=== PATIENT | female | born 1960 | race Caucasian/White ===

== ENCOUNTER 2016-11-30 17:08 | Emergency (ER) | payer BC, OTHER ==
[~2016-11-30] VITALS: Ht 160 cm; Wt 88.3 kg
[2016-11-30 17:14] VITALS: BP 162/74
[2016-11-30] MEDS ORDERED: diphenhydrAMINE 50 MG/ML INJ (BENADRYL) IV ONE (17:30)
[2016-11-30] MEDS ORDERED: HYDROmorphone 2 MG/ML (DILAUDID) 1 ML SYRINGE IM ONE (17:30)
[2016-11-30] MEDS ORDERED: PROMETHAZINE 25 MG/ML (PHENERGAN) 1 ML VIAL IM ONE (17:35)
== END 2016-11-30 18:15 | disposition home or self-care (01) ==
LOC: ED 17:09
DX: G43.111 Migraine with aura, intractable, with status migrainosus (principal)
CPT/HCPCS: 96372; 96374; 99282; J1170; J1200; J2550

== ENCOUNTER 2016-12-17 19:08 | Emergency (ER) | payer BC, OTHER ==
[~2016-12-17] VITALS: Ht 160 cm; Wt 88.6 kg
[~2016-12-17 19:08] MED LIST: AMIT25TA9 PO; BTR10SP2; CHOL10002 PO; CINN500C14 PO; DULO60CA58 PO; ELUX75TA PO; ESZO3TAB11 PO; HYDR-3754 PO; HYDR-3811 PO; MODA100T10 PO; MTC5T PO; ONDA4TABED PO; OSPE60TA2 PO; PERCOCET PO; PRM25T PO; PROM25TA5 PO; [UNRECOGNIZED DRUG - OTHER]
--- OUTSIDE RECORDS SUMMARY | 2016-12-17 19:15 | XMS REPORT | Continuity of Care Document ---
Author Author [facility] Organization [facility] Address Unknown Phone Unavailable Care Team Providers Care Rubber Tubing Splicer Name Role Phone Ariane Santana PCP [phone] Source Comments Some departments are not documenting in the electronic medical record. If you do not see the information that you expected, contact Release of Information in the Health Information Management department at [phone] for further assistance in locating additional records.[facility] Active Allergies and Adverse Reactions Allergen Noted Date Severity Reactions Comments Ancef 09/16/2015 High ANAPHYLAXIS Aspirin 09/16/2015 Medium HIVES Cephalosporins 09/16/2015 High ANAPHYLAXIS Gluten 09/16/2015 High ANAPHYLAXIS Hay Fever And Allergy 09/16/2015 Low SEE COMMENTS Congested feeling Relief Levaquin 09/16/2015 High ANAPHYLAXIS Pcn 09/16/2015 High ANAPHYLAXIS Sulfa (Sulfonamide 09/16/2015 High ANAPHYLAXIS Antibiotics) Current Medications Prescription Sig. Disp. Refills Start End Date Status Date eszopiclone(+) (LUNESTA) Take by mouth daily. Active 3 mg tablet amitriptyline (ELAVIL) 25 Take 25 mg by mouth at Active mg tablet bedtime daily. modafinil (PROVIGIL) 200 Take 200 mg by mouth Active mg tablet daily. cyclobenzaprine Take 10 mg by mouth three Active (FLEXERIL) 10 mg tablet times daily as needed for Muscle Cramps. Active Problems Not on file Social History Tobacco Use Types Packs/Day Years Used Date Former Smoker Quit: 09/16/2005 Last Filed Vital Signs Vital Sign Reading Time Taken Blood Pressure 142/87 09/16/2015 10:16 AM AUTO BODY SERVICE MECHANIC Pulse 96 09/16/2015 10:16 AM AUTO BODY SERVICE MECHANIC Temperature 36.6 C (97.8 F) 09/16/2015 10:16 AM AUTO BODY SERVICE MECHANIC Respiratory Rate 16 09/16/2015 10:16 AM AUTO BODY SERVICE MECHANIC Height 1.604 m (5' 3.15") 09/16/2015 10:16 AM AUTO BODY SERVICE MECHANIC Weight 92.534 kg (204 lb) 09/16/2015 10:16 AM AUTO BODY SERVICE MECHANIC Body Mass Index 35.97 09/16/2015 10:16 AM AUTO BODY SERVICE MECHANIC Oxygen Saturation 100% 09/16/2015 10:16 AM AUTO BODY SERVICE MECHANIC Plan of Care Health Maintenance Due Date Last Done Comments Hepatitis C Screening 1960 Physical (Comprehensive) 1965 Exam Pertussis Vaccine 1969 Tetanus Vaccine 1975 Cervical Cancer Screening 1979 Breast Cancer Screening 1998 Colorectal Cancer 2008 Screening Influenza Vaccine 05/06/2017 Results from Last 3 Months Not on file
--- OUTSIDE RECORDS SUMMARY | 2016-12-17 19:18 | XMS REPORT | Continuity of Care Document ---
Author Author [facility] Organization [facility] Address Unknown Phone Unavailable Care Team Providers Care Ergonomics Technician Name Role Phone Ariane Santana PCP [phone] Source Comments Some departments are not documenting in the electronic medical record. If you do not see the information that you expected, contact Release of Information in the Health Information Management department at [phone] for further assistance in locating additional records.[facility] Active Allergies and Adverse Reactions Allergen Noted [...] Taken Blood Pressure 142/87 09/16/2015 10:16 AM MANAGER ECONOMIC Pulse 96 09/16/2015 10:16 AM MANAGER ECONOMIC Temperature 36.6 C (97.8 F) 09/16/2015 10:16 AM MANAGER ECONOMIC Respiratory Rate 16 09/16/2015 10:16 AM MANAGER ECONOMIC Height 1.604 m (5' 3.15") 09/16/2015 10:16 AM MANAGER ECONOMIC Weight 92.534 kg (204 lb) 09/16/2015 10:16 AM MANAGER ECONOMIC Body Mass Index 35.97 09/16/2015 10:16 AM MANAGER ECONOMIC Oxygen Saturation 100% 09/16/2015 10:16 AM MANAGER ECONOMIC Plan of Care Health Maintenance Due Date Last Done Comments Hepatitis C Screening 1960 Physical (Comprehensive) 1965 Exam Pertussis Vaccine 1969 Tetanus Vaccine 1975 Cervical Cancer Screening 1979 Breast Cancer Screening 1998 Colorectal Cancer 2008 Screening Influenza Vaccine 05/06/2017 Results from Last 3 Months Not on file
[2016-12-17] MEDS ORDERED: HYDROmorphone 2 MG/ML (DILAUDID) 1 ML SYRINGE IM ONE (20:45)
[2016-12-17] MEDS ORDERED: PROMETHAZINE 25 MG/ML (PHENERGAN) 1 ML VIAL IM ONE (20:45)
--- NOTE | 2016-12-17 23:15 | NUR ---
Pt reports that her pain is no better
[2016-12-17] MEDS ORDERED: morphine INJ 10 MG/ML 1 ML VIAL IM SCH (23:20)
[2016-12-18] MEDS ORDERED: ED- oxyCODONE/ACETAMINOPHEN 5MG-325MG (PERCOCET) 8 TABLETS/BTL PO ONE (00:45)
[2016-12-18] MEDS ORDERED: OXYC1TAB87 PO (00:45)
[2016-12-18 02:13] VITALS: BP 131/60
--- NOTE | 2016-12-18 10:35 | Diagnostic Imaging Report ---
INDICATION: Left hand pain. COMPARISON: None available. FINDINGS: There is no acute fracture or traumatic malalignment of the left hand. Joint spaces are well-maintained. No radiopaque foreign body outside of the patient's wrist bracelet. IMPRESSION: 1. No acute fracture or traumatic malalignment involving the left hand. Dictated by: Dictated on workstation # [id number]
--- NOTE | 2016-12-18 10:37 | Diagnostic Imaging Report ---
INDICATION: Right hand pain after fall. COMPARISON: None available. TECHNIQUE: 3 views of the right hand. FINDINGS: There is no acute fracture or traumatic malalignment. There are mild degenerative changes at the thumb MCP and CMC joints. Joint spaces are otherwise well-maintained. No radiopaque foreign body. IMPRESSION: 1. No acute fracture or traumatic malalignment involving the right hand. 2. Mild degenerative changes of the right thumb CMC and MCP joints. Dictated by: Dictated on workstation # [id number]
--- NOTE | 2016-12-18 10:39 | Diagnostic Imaging Report ---
INDICATION: Left ankle pain after fall. COMPARISONS: None available. TECHNIQUE: 3 nonweightbearing views of the left ankle. FINDINGS: There is no acute fracture or traumatic malalignment. No osteochondral lesion of the talar dome. The midfoot and tibiotalar joint spaces are well-maintained. No soft tissue swelling. Small plantar calcaneal spur. IMPRESSION: 1. No acute fracture or traumatic malalignment of the left ankle. Dictated by: Dictated on workstation # [id number]
--- NOTE | 2016-12-18 10:43 | Diagnostic Imaging Report ---
INDICATION: Left hip pain after a fall. COMPARISON: None available. TECHNIQUE: AP and frog-leg lateral views of the left hip. FINDINGS: Surgical changes from left total hip arthroplasty. Components are in good position. No acute periprosthetic fracture. No evidence of loosening. No geographic lucencies to indicate osteolysis. Visualized aspects of the left obturator ring are intact. IMPRESSION: 1. No acute fracture or traumatic malalignment involving left total hip arthroplasty. Dictated by: Dictated on workstation # [id number]
--- NOTE | 2016-12-18 10:49 | Diagnostic Imaging Report ---
INDICATION: Knee pain after fall. COMPARISON: None available. TECHNIQUE: Nonweightbearing AP, oblique and lateral views of left knee. FINDINGS: Surgical changes from unicompartmental medial arthroplasty. Components are in good position without evidence of periprosthetic fracture or loosening. No fracture elsewhere about the knee. Mild degenerative changes of the lateral compartment. No knee joint effusion. IMPRESSION: 1. No acute fracture or traumatic malalignment of the left knee. 2. Status post unicompartmental medial arthroplasty. Dictated by: Dictated on workstation # [id number]
--- NOTE | 2016-12-18 11:16 | Diagnostic Imaging Report ---
INDICATION: Back pain after fall. COMPARISON: None available. TECHNIQUE: Three views of the thoracic spine. FINDINGS: There is no acute fracture or traumatic malalignment. There is mild degenerative disc disease in the lower thoracic spine. There is an epidural spinal stimulator with leads overlying the lower spinal canal. IMPRESSION: 1. No acute fracture or traumatic malalignment. Dictated by: Dictated on workstation # [id number]
--- NOTE | 2016-12-18 11:34 | Diagnostic Imaging Report ---
INDICATION: Right toe pain. COMPARISON: None available. TECHNIQUE: Three views of the right toes. FINDINGS AND IMPRESSION: There is no acute fracture or traumatic malalignment. No radiopaque foreign body. Dictated by: Dictated on workstation # [id number]
--- NOTE | 2016-12-18 12:13 | Diagnostic Imaging Report ---
PROCEDURE: CT head and CT cervical spine without contrast. TECHNIQUE: Multiple contiguous axial images were obtained through the brain and cervical spine without the use of intravenous contrast. Sagittal and coronal reformations through the cervical spine were then performed. INDICATION: Head and neck pain after fall. COMPARISON: CT head of 04/27/2016 FINDINGS: Head: No hyperdense mass or space-occupying mass. No hydrocephalus or midline shift. No evidence of territorial infarct. Basilar cisterns are patent. No focal scalp swelling. No skull fracture. The paranasal sinuses and mastoid air cells are clear. Cervical spine: No acute fracture or traumatic malalignment. Degenerative straightening of the cervical spine. Multilevel degenerative disc disease is most advanced at C5-C6 with small posterior disc osteophyte complex. Multifocal facet osteoarthritis. Lung apices are clear. Airway is patent. No cervical lymphadenopathy. Visualized thyroid is normal. IMPRESSION: 1. No acute intracranial process. 2. No acute fracture or traumatic malalignment of the cervical spine. 3. Findings in agreement with the preliminary report. Dictated by: Dictated on workstation # [id number]
== END 2016-12-18 01:00 | disposition home or self-care (01) ==
LOC: ED 19:13
DX: G89.11 Acute pain due to trauma (principal); M54.2 Cervicalgia; M54.89 Other dorsalgia; M79.642 Pain in left hand; M79.641 Pain in right hand; M79.674 Pain in right toe(s); M25.552 Pain in left hip; M25.562 Pain in left knee; M25.572 Pain in left ankle and joints of left foot; W18.09XA Striking against other object with subsequent fall, initial encounter; Y92.000 Kitchen of unspecified non-institutional (private) residence as the place of occurrence of the external cause
CPT/HCPCS: 70450; 72072; 72125; 73130; 73502; 73562; 73610; 73660; 96372; 99282; J1170; J2270; J2550; 99283

== ENCOUNTER → 2016-12-22 | Outpatient (CLI) | payer BC, OTHER ==
[~2016-12-22] MED LIST changes: +OXYC1TAB87 PO
--- NOTE | 2016-12-23 08:50 | Diagnostic Imaging Report ---
INDICATION: Bloating with early satiety. Recent fall. FINDINGS: Epidural nerve stimulator is noted overlying the lower thoracic spine with generator overlying the right abdomen. There is considerable stool noted within the colon especially along the transverse and descending colon. There is mild gaseous distention of the small bowel and stomach. There is no organomegaly. No pathologic calcifications are demonstrated. No fractures are demonstrated. IMPRESSION: 1. Findings consistent with constipation which appears to be causing mild gaseous distention of the small bowel and stomach. Dictated by: Dictated on workstation # [id number]
== END ==
LOC: RAD 17:31
PROVIDERS: ATTEND Internal Medicine Gastroenterology
DX: R68.81 Early satiety (principal)
CPT/HCPCS: 74000

== ENCOUNTER → 2017-01-06 | Outpatient (CLI) | payer BC, OTHER ==
[2017-01-06 10:56] LABS: BASOPHILS % (AUTO) 0 % (0-2); EOSINOPHILS # (AUTO) 0.4 10^3uL; EOSINOPHILS % (AUTO) 7 % (0-4); LYMPHOCYTES # (AUTO) 2.1 X10^3; MEAN CORPUSCULAR HEMOGLOBIN 30.4 PG (26.0-34.0); MEAN CORPUSCULAR HGB CONC 32.5 g/dL (31.0-37.0); MEAN CORPUSCULAR VOLUME 94 FL (80-100); MEAN PLATELET VOLUME 9.2 FL (6.0-9.5); MONOCYTES # (AUTO) 0.4 X10^3; MONOCYTES % (AUTO) 8 % (3-11); NEUTROPHILS # (AUTO) 2.4 X10^3; NEUTROPHILS % (AUTO) 46 % (51-67); PLATELET COUNT 406 10^3uL (150-450); WHITE BLOOD COUNT 5.35 10^3uL (4.0-11.0)
[2017-01-06 12:16] LABS: ALBUMIN 3.9 g/dL (3.4-5.0); ALKALINE PHOSPHATASE 148 U/L (38-126); BUN/CREATININE RATIO 12 (10-20); CALCULATED IONIZED CALCIUM 4.1 mg/dL (3.8-4.6); TOTAL PROTEIN 7.2 g/dL (6.4-8.5)
== END ==
LOC: LAB 10:30
PROVIDERS: ATTEND Family Medicine
DX: R07.9 Chest pain, unspecified (principal)
CPT/HCPCS: 36415; 80053; 82550; 83880; 84484; 85025